=== PATIENT | female | born 1980 | race Caucasian/White ===

== ENCOUNTER 2018-12-25 15:46 | Emergency (ER) | payer BC ==
[2018-12-25 16:49] VITALS: BP 111/77
[2018-12-25 17:22] LABS: Influenza A Molecular NEGATIVE (Negative); Influenza B Molecular NEGATIVE (Negative)
--- NOTE | 2018-12-25 17:25 | UC ---
FLU HPI - HPI Summary HPI Summary: 38-year-old female presents with onset of fever, general malaise, fatigue, body aches, and sore throat today. Denies headache, ear pain, nasal congestion, sinus pressure, dysphagia, cough, chest pain, shortness of breath, abdominal pain, nausea, vomiting, diarrhea, dysuria, frequency, or urgency. - History of Current Complaint Chief Complaint: UCRespiratory Stated Complaint: FEVER,ST,BODY ACHES Time Seen by Provider: 12/25/18 16:47 Hx Obtained From: Patient Hx Last Menstrual Period: "2 weeks ago" Pain Intensity: 6 - Allergy/Home Medications Allergies/Adverse Reactions: Allergies Allergy/AdvReac Type Severity Reaction Status Date / Time No Known Allergies Allergy Verified 12/25/18 16:42 Home Medications: Home Medications NK [No Home Medications Reported] 12/25/18 [History Confirmed 12/25/18] PMH/Surg Hx/FS Hx/Imm Hx Previously Healthy: Yes - Denies significant PMH - Surgical History Surgical History: Yes Surgery Procedure, Year, and Place: 1988 [place] [facility] [place]ILLECTOMY [facility] [place]. cyst removed from left wrist. right breast biopsy, normal findings - Family History Known Family History: Positive: Non-Contributory - Social History Occupation: Employed Full-time Lives: Alone Alcohol Use: Occasionally Alcohol Amount: FEW DRINKS/YEAR Substance Use Type: None Smoking Status (MU): Never Smoked Tobacco Have You Smoked in the Last Year: No Review of Systems All Other Systems Reviewed And Are Negative: Yes Constitutional: Positive: Fever, Fatigue Skin: Negative: Rash Eyes: Negative: Drainage, Eye Redness ENT: Positive: Sore Throat. Negative: Ear Ache, Nasal Discharge, Sinus Congestion, Sinus Pain/Tenderness Respiratory: Negative: Shortness Of Breath, Cough Cardiovascular: Negative: Palpitations, Chest Pain Gastrointestinal: Negative: Abdominal Pain, Vomiting, Diarrhea, Nausea Genitourinary: Negative: Dysuria, Frequency, Urgency Musculoskeletal: Positive: Myalgia Neurological: Positive: Negative Is Patient Immunocompromised?: No Physical Exam - Summary Physical Exam Summary: GENERAL APPEARANCE: Well developed, well nourished, alert and cooperative, and appears to be in no acute distress. EYES: Conjunctiva clear. No drainage. EARS: External auditory canals and tympanic membranes clear, hearing grossly intact. NOSE: No nasal discharge. THROAT: Pharyngeal erythema. Surgically absent tonsils. Uvula midline. NECK: Neck supple, non-tender without lymphadenopathy. CARDIAC: Normal S1 and S2. No S3, S4 or murmurs. Rhythm is regular. There is no peripheral edema, cyanosis or pallor. Extremities are warm and well perfused. Capillary refill is less than 2 seconds. Peripheral pulses intact. LUNGS: Clear to auscultation without rales, rhonchi, wheezing or diminished breath sounds. ABDOMEN: Positive bowel sounds. Soft, nondistended, nontender. No guarding or rebound. No masses or hepatosplenomegally. MUSKULOSKELETAL: ROM intact to all extremities. No joint erythema or tenderness. Normal muscular development. Normal gait. SKIN: Skin normal color, texture and turgor with no lesions or eruptions. Triage Information Reviewed: Yes Vital Signs: Initial Vital Signs Temp 100.4 F 12/25/18 16:43 Pulse 98 12/25/18 16:43 Resp 16 12/25/18 16:43 BP 111/77 12/25/18 16:43 Pulse Ox 100 12/25/18 16:43 Vital Signs Reviewed: Yes Flu Course/Dx - Course Course Of Treatment: 38-year-old female presents with onset of fever, general malaise, fatigue, body aches, and sore throat today. Denies headache, ear pain, nasal congestion, sinus pressure, dysphagia, cough, chest pain, shortness of breath, abdominal pain, nausea, vomiting, diarrhea, dysuria, frequency, or urgency. Patient a mildly elevated temperature of 100.4 F. Remainder of vitals were stable. On exam she had pharyngeal erythema with surgically absent tonsils, no cervical lymphadenopathy, and remainder of exam was unremarkable. Rapid strep test was negative. Rapid flu test was negative. Discussed findings with the patient. Recommending symptomatic treatment for a viral pharyngitis. She is to follow- up with her primary care provider in 5-7 days if symptoms are not improving. Anticipatory guidance and warning symptoms were reviewed with the patient. Verbalizes understanding and agrees with plan of care. - Differential Dx/Diagnosis Differential Diagnosis/HQI/PQRI: Bronchitis, Influenza, Pneumonia, Upper Respiratory Infection Provider Diagnosis: Acute viral pharyngitis Discharge ED - Sign-Out/Discharge Documenting (check all that apply): Patient Departure All imaging exams completed and their final reports reviewed: No Studies - Discharge Plan Condition: Stable Disposition: HOME Patient Education Materials: Pharyngitis (ED) Referrals: Jil Hughes [Primary Care Provider] - Additional Instructions: Your rapid strep test and rapid flu test in the clinic today was negative. Your symptoms are likely from a viral infection. Viral infections do not respond to antibiotics and are limited to the treatment of symptoms. Viral infections typically run their course in 7-10 days. Drink plenty of fluids to avoid dehydration especially if you are running any fever. Use salt water gargles several times a day. Take over the counter acetaminophen (Tylenol) or ibuprofen (Advil, Motrin) according to directions as needed for pain or fever. You may also use Chloraseptic spray or Cepacol lonzenges according to directions which contain a numbing medication and can provide some temporary relief from your sore throat. Return here or follow up with your primary care provider in 5-7 days if symptoms persist. Seek immediate medical attention in the emergency room if you have fever greater than 100.5 F despite taking acetaminophen or ibuprofen, are unable to swallow or develop drooling, are unable to open your mouth fully, are unable to eat or drink, have pain that is not relieved with over the counter pain medication, or have any difficulty breathing. - Billing Disposition and Condition Condition: STABLE Disposition: Home
== END 2018-12-25 17:45 | disposition home or self-care (01) ==
LOC: UCCORT 15:46
DX: J02.8 Acute pharyngitis due to other specified organisms (principal); R50.9 Fever, unspecified; R53.83 Other fatigue; M79.10 Myalgia, unspecified site
CPT/HCPCS: 87651; 99201; G0463

== ENCOUNTER 2019-03-19 15:15 | Emergency (ER) | payer BC ==
--- OUTSIDE RECORDS SUMMARY | 2019-03-19 16:12 | XMS REPORT ---
:1980 Author Organization [facility] Address [address] [place] [address] Care Team Providers Name Role Phone Lexi Hernandez Unavailable Unavailable PROBLEMS Type Condition ICD9-CM Code [id number] Code Onset Condition SNOMED Code Dates Status Problem Irregular N92.6 Active 53156000 menstruation, unspecified Problem Other abnormal R92.8 Active 789991806 and inconclusive findings on diagnostic imaging of breast ALLERGIES No Information ENCOUNTERS Encounter Location Date Diagnosis [facility] 103 Feb, Encounter for other OBGYN [facility], screening for malignant [place] [id number] neoplasm of breast Z12.39 and Encounter for screening mammogram for malignant neoplasm of breast Z12.31 [facility] 103 Feb, Mastodynia N64.4 ; Other OBGYN [facility], abnormal and inconclusive [place] [id number] findings on diagnostic imaging of breast R92.8 ; Encounter for gynecological examination (general) (routine) without abnormal findings Z01.419 and Encounter for screening for malignant neoplasm of cervix Z12.4 [facility] 103 Dec, Other abnormal and OBGYN [facility], inconclusive findings on [place] [id number] diagnostic imaging of breast R92.8 [facility] 103 Dec, Mastodynia N64.4 [place] [id number] [facility] 103 Dec, [place] [id number] [facility] 103 Dec, Other abnormal and [facility], inconclusive findings on [place] [id number] diagnostic imaging of breast R92.8 [facility] 103 Aug, [facility], unspecified N92.6 and [place] [id number] Unspecified lump in the right breast, unspecified quadrant N63.10 [place] [facility] 103 Jan, [facility]regular menstruation, [facility], unspecified N92.6 and [place] [id number] Family history of malignant neoplasm of breast Z80.3 [place] [facility] 103 Jan, Irregular menstruation, [facility], unspecified N92.6 [place] [id number] [place] 103 Jan, [place] [id number] [facility] 103 Jan, [facility] [place] [id number] [place] [facility] 103 Jan, Encounter for [facility], gynecological examination [place] [id number] (general) (routine) without abnormal findings Z01.419 ; Encounter for screening for malignant neoplasm of cervix Z12.4 ; Nipple discharge N64.52 ; Irregular menstruation, unspecified N92.6 and Unspecified lump in the right breast, unspecified quadrant N63.10 [facility] Dec, [facility] [place] [id number] [place] [facility] 103 Dec, Unspecified lump in the [facility], right breast, unspecified [place] [id number] quadrant N63.10 [place] [facility] 103 Nov, Unspecified lump in the [facility], right breast, unspecified [place] [id number] quadrant N63.10 [place] [facility] 103 Dec, Encounter for [facility], gynecological examination [place] [id number] (general) (routine) without abnormal findings Z01.419 [facility] 103 Jan, [place] [id number] [facility] 103 Feb, ROUTINE FISHING CAPTAIN EXAMINATION OBGYN [facility], V72.31 and PAP SMEAR W/O [place] [id number] FISHING CAPTAIN EXAM V76.2 [facility] Dec, [place] [id number] [facility] Oct, ROUT POSTPART FOLLOW -UP OBGYN [facility], V24.2 and FAMILY PLANNING [place] [id number] V25.09 [facility] 103 Sep, Headache following lumbar OBGYN [facility], puncture 349.0 and [place] [id number] Delivery with first degree perineal laceration, delivered 664.01 [facility] 103 Aug, [place] [id number] [facility] [address] [place] [address] Aug, [address] [place] [address], UNSPEC. V28.9 [place] [id number] [facility] [address] [facility] Aug, [address] [place], UNSPEC. V28.9 [place] [id number] [facility] 103 Aug, [place] [id number] [facility] 103 Aug, SCREENING OBGYN [facility], UNSPEC. V28.9 [place] [id number] [facility] 103 Jul, SCREENING OBGYN [facility], UNSPEC. V28.9 [place] [id number] [facility] 103 Jul, SCREENING OBGYN [facility], UNSPEC. V28.9 [place] [id number] [place] [facility] 103 Jul, [place] [id number] [facility] [facility] 103 June, SCREENING OBGYN [facility], UNSPEC. V28.9 [place] [id number] [place] [facility] 103 June, SCREENING OBGYN [facility], UNSPEC. V28.9 [place] [id number] [place] [facility] 103 June, SCREENING OBGYN [facility], UNSPEC. V28.9 [place] [id number] [place] [facility] 103 May, [place] [id number] [facility] [facility] 103 May, SCREENING OBGYN [facility], UNSPEC. V28.9 [place] [id number] [place] [facility] 103 May, Other placental OBGYN [facility], condition, antepartum [place] [id number] 656.73 [place] [facility] 103 Apr, [place] [id number] [place] [facility] 103 Apr, [place] [id number] [place] [facility] 103 Apr, SCREENING OBGYN [facility], UNSPEC. V28.9 [place] [id number] [place] [facility] 103 Apr, US-SCREEN ANOMALIES V28.3 OBGYN [facility], ; Other placental [place] [id number] condition, antepartum 656.73 and SCREENING UNSPEC. V28.9 [place] [facility] 103 Mar, [place] [id number] [place] [facility] 103 Mar, SCREENING OBGYN [facility], UNSPEC. V28.9 [place] [id number] [place] [facility] 103 Mar, [place] [id number] [place] [facility] 103 Mar, [place] [id number] [place] [facility] 103 Feb, SCREENING OBGYN [facility], UNSPEC. V28.9 [place] [id number] [place] [facility] 103 Feb, [place] [id number] [facility] [facility] 103 Feb, [place] [id number] [facility] 103 Feb, [place] [id number] [place] [facility] 103 Feb, SCREENING OBGYN [facility], UNSPEC. V28.9 [place] [id number] [place] [facility] 103 Feb, [place] [id number] [place] [facility] 103 Feb, [place] [id number] IMMUNIZATIONS No Known Immunizations SOCIAL HISTORY Never Assessed REASON FOR REFERRAL FUNCTIONAL STATUS PLAN OF CARE Activity Details Pending Test Ultrasound: Bilateral Breast Pending Test Mammogram, Routine Screening - bilateral VITAL SIGNS MEDICATIONS Unknown Medications PROCEDURES No Known procedures RESULTS No Results REASON FOR VISIT DEC 2018 Insurance Providers [facility] Member Patient Patient Patient Patient Patient Subscriber Subscriber Subscriber Group Insurance Plan Plan Plan Plan ID Relationship Address Phone Name Date of ID Name Date of No Type Insurance Insurance Insurance Coverage to Subscriber Address Phone Name Dates Jose Raul Kelly [phone] Jose Raul Borrero [id number] Blue Jhaveri 3 Cross/Blue [place] Cross/Blue Shield [id number] Shield MEDICAL (GENERAL) HISTORY Type Description Date Medical History Elevated testosterone Surgical History adenoids 1988 Surgical History tonsils 1991 Surgical History left wrist cyst removed benign 2015 Surgical History Rt breast FNA: Benign fibrocystic tissue 2017 Hospitalization History see above Hospitalization History childbirth
[2019-03-19 16:24] VITALS: BP 119/64
--- NOTE | 2019-03-19 16:37 | UC ---
FLU HPI - HPI Summary HPI Summary: 38 yo with onset of sinus congestion and malaise x 3 days ago, with increase in cough today along with myalgias. No fever. 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 - History of Current Complaint Chief Complaint: UCGeneralIllness Stated Complaint: FLU LIKE SYMPTOMS Time Seen by Provider: 03/19/19 16:29 Hx Obtained From: Patient Hx Last Menstrual Period: "2 weeks ago" Onset/Duration: Gradual Onset, Lasting Days Severity Currently: Mild Severity Initially: Moderate Pain Intensity: 5 Associated Signs & Symptoms: Positive: Myalgia, Sore Throat, Nasal Congestion, Headache - Allergy/Home Medications Allergies/Adverse Reactions: Allergies Allergy/AdvReac Type Severity Reaction Status Date / Time No Known Allergies Allergy Verified 03/19/19 16:24 Home Medications: Home Medications D-Methorphan/PE/Acetaminophen [Daytime Cold-Flu Liquid] 118 ml PO ONCE PRN 03/19 [History Confirmed 03/19/19] Multivitamin with Minerals [One Daily Complete] 1 each PO DAILY 03/19/19 [ History Confirmed 03/19/19] PMH/Surg Hx/FS Hx/Imm Hx Previously Healthy: Yes - Surgical History Surgical History: Yes Surgery Procedure, Year, and Place: 1988 [place]ENOIDS REMOVE [facility] [place]. 1993 TONSILLECTOMY [facility] [place]. cyst removed from left wrist. right breast biopsy, normal findings - Family History Known Family History: Positive: Cardiac Disease - father has a fib - Social History Occupation: Employed Full-time Lives: With Family Alcohol Use: Occasionally Alcohol Amount: FEW DRINKS/YEAR Substance Use Type: None Smoking Status (MU): Never Smoked Tobacco Have You Smoked in the Last Year: No Review of Systems All Other Systems Reviewed And Are Negative: Yes Constitutional: Positive: Fatigue Skin: Positive: Negative Eyes: Positive: Negative ENT: Positive: Sore Throat, Nasal Discharge, Sinus Congestion Respiratory: Positive: Cough - chest feels tight with inhalation Cardiovascular: Positive: Negative Gastrointestinal: Positive: Negative Genitourinary: Positive: Negative Motor: Positive: Negative Neurovascular: Positive: Negative Musculoskeletal: Positive: Myalgia Neurological: Positive: Headache Psychological: Positive: Negative Is Patient Immunocompromised?: No Physical Exam Triage Information Reviewed: Yes Appearance: Ill-Appearing - looks mildly unwell, but in no distress Vital Signs: Initial Vital Signs Temp 98.6 F 01/27/20 16:19 Pulse 83 03/19/19 16:19 Resp 17 03/19/19 16:19 BP 119/64 03/19/19 16:19 Pulse Ox 100 03/19/19 16:19 Eyes: Positive: Conjunctiva Clear ENT: Positive: Pharyngeal erythema - posterior, TMs normal Neck: Positive: Supple, Nontender, No Lymphadenopathy Respiratory: Positive: Lungs clear, Normal breath sounds Cardiovascular: Positive: RRR, No Murmur Musculoskeletal Exam: Normal Neurological Exam: Normal Psychological Exam: Normal Skin Exam: Normal Diagnostics - Laboratory Lab Results: Flu negative Flu Course/Dx - Course Course Of Treatment: Symptomatic treatment of viral URI. - Differential Dx/Diagnosis Differential Diagnosis/HQI/PQRI: Upper Respiratory Infection Provider Diagnosis: URI, acute Discharge ED - Sign-Out/Discharge Documenting (check all that apply): Patient Departure All imaging exams completed and their final reports reviewed: No Studies - Discharge Plan Condition: Stable Disposition: HOME Patient Education Materials: Upper Respiratory Infection (ED) Referrals: Jil Hughes [Primary Care Provider] - Additional Instructions: Continue symptomatic treatment of viral respiratory illness, with increase in rest and fluids. Use ibuprofen or acetaminophen for headache and sore muscles. Follow up if you develop fever or shortness of breath. - Billing Disposition and Condition Condition: STABLE Disposition: Home
[2019-03-19 16:53] LABS: Influenza A Molecular NEGATIVE (Negative); Influenza B Molecular NEGATIVE (Negative)
== END 2019-03-19 17:19 | disposition home or self-care (01) ==
LOC: UCCORT 15:15
DX: J06.9 Acute upper respiratory infection, unspecified (principal); R51 Headache; M79.10 Myalgia, unspecified site; R53.83 Other fatigue
CPT/HCPCS: 99211; G0463